=== PATIENT | female | born 1970 | race Caucasian/White ===

== ENCOUNTER 2019-06-11 16:26 | Emergency (ER) | payer OTHER ==
[~2019-06-11] VITALS: Ht 157.5 cm; Wt 61.2 kg
[2019-06-11 16:27] VITALS: BP 153/83
[2019-06-11] MEDS ORDERED: HIV MEDICATION (16:40)
[2019-06-11] MEDS ORDERED: ERYTHROMYCIN E3.5 G3 OPHTHALMIC (16:48)
== END 2019-06-11 16:59 | disposition home or self-care (01) ==
LOC: M.ERS 16:26
DX: S05.01XA Injury of conjunctiva and corneal abrasion without foreign body, right eye, initial encounter (principal); Z21 Asymptomatic human immunodeficiency virus [HIV] infection status; Z98.890 Other specified postprocedural states; Z90.49 Acquired absence of other specified parts of digestive tract; Z88.1 Allergy status to other antibiotic agents; Z88.5 Allergy status to narcotic agent; X58.XXXA Exposure to other specified factors, initial encounter; Y92.89 Other specified places as the place of occurrence of the external cause; Y93.89 Activity, other specified; Y99.8 Other external cause status